=== PATIENT | male | born 1990 | race Caucasian/White ===

== ENCOUNTER 2024-04-06 08:30 | Day surgery (SDC) | payer MEDICAID ==
[~2024-04-06] VITALS: Ht 177.8 cm; Wt 75.0 kg
[~2024-04-06 08:30] MED LIST: ALBU18HF12 IH; FAMO20TA8 PO; LIDOCAINE/PF 2% 5 ML VIAL ONE; OMEP20CA12 PO; PROPOFOL 1% 20 ML VIAL IVP ONE; SODIUM CHLORIDE 0.9% 1,000 ML ONE
[2024-04-06] MEDS: SODIUM CHLORIDE 0.9% 1,000 ML IV ONE (09:18)
== END 2024-04-06 12:10 | disposition home or self-care (01) ==
LOC: SURGERY 08:30
PROVIDERS: ATTEND Internal Medicine Gastroenterology
DX: K21.9 Gastro-esophageal reflux disease without esophagitis (principal); K29.70 Gastritis, unspecified, without bleeding; K29.80 Duodenitis without bleeding; J45.909 Unspecified asthma, uncomplicated; F41.1 Generalized anxiety disorder; F32.9 Major depressive disorder, single episode, unspecified; Z79.899 Other long term (current) drug therapy; Z98.890 Other specified postprocedural states; Z88.8 Allergy status to other drugs, medicaments and biological substances
CPT/HCPCS: 43239; 88305; 88312; 88313; C1769; J2704; J3490; J7030